=== PATIENT | female | born 1960 | race Caucasian/White ===

== ENCOUNTER 2020-08-21 23:55 | Emergency (ER) | payer OTHER, SELFPAY ==
[2020-08-22 00:10] VITALS: BP 175/95; PULSE 124; RESP 20; TEMP 36.6; O2SAT 94; BMI 27.3
--- NOTE | 2020-08-22 00:11 | W.ED.HEATRA ---
HPI - Head Injury General: Chief complaint: Wound/Laceration Stated complaint: lip lac Time Seen by Provider: 08/22/20 00:09 Source: patient Mode of arrival: ambulatory Limitations: no limitations History of Present Illness: HPI Narrative: Patient was walking her dog and the dog yanked pulling her into a door frame. Patient lacerated the mid upper lip. Patient does have laceration involving the vermilion border. Patient does not recall her last tetanus shot. Patient appears well. Patient appears no acute distress. Incident occurred just prior to arrival. Review of Systems General: Reports: 10 or more systems reviewed and unremarkable except in HPI and below Skin/Breast: Reports: other (Upper lip laceration.) Physical Exam Const: COMMON NORMALS: no acute distress and patient oriented x3 GENERAL APPEARANCE: cooperative HENMT: COMMON NORMALS: normocephalic, TM's normal bilaterally and Normal external nose present HEAD & SCALP: normal to inspection and normocephalic NOSE: Normal external nose present TYMPANIC MEMBRANE: TM's normal bilaterally MOUTH: Normal oral and palatal mucosa present and other (No injury to the teeth, laceration involving the upper lip going through th) THROAT: posterior oropharynx normal Eye: GENERAL EYE: appearance normal, both eyes and all related structures Neck/C-Spine: COMMON NORMALS: full ROM Chest: COMMONS NORMALS: normal inspection of the chest Resp: COMMON NORMALS: normal respiratory effort EFFORT & INSPECTION: Yes able to speak in complete sentences Cardio: COMMON NORMALS: regular rate and regular rhythm RATE: regular rate RHYTHM: regular rhythm GI: COMMON NORMALS: non-tender Extremity: COMMON NORMALS: normal to inspection Neuro: COMMON NORMALS: patient oriented x3 and moves all extremities Psych: COMMON NORMALS: mental status grossly normal and cooperative Skin: COMMON NORMALS: no rashes or lesions noted GENERAL SKIN EXAM: no rashes or lesions noted Procedures Laceration Laceration 1: Site: lip Size (cm): 3 Description: linear and involves vlad border Depth: simple, single layer Local Anesthetic: lidocaine 1% and with epi Amount of anesthesia used (mL): 3 Skin layer closed with: nylon Size (cm): 6-0 Number of sutures: 6 Technique: simple, interrupted and horizontal mattress Course Vital Signs: Vital signs: Vital Signs Temperature 97.9 F 08/22/20 00:10 Pulse Rate 121 H 08/22/20 00:14 Respiratory Rate 18 04/25/21 00:14 Blood Pressure 175/95 08/22/20 00:10 Pulse Oximetry 95 08/22/20 00:14 MDM - Head Injury MDM Narrative: Medical decision making narrative: Patient comes in for injury to the mid upper lip. On exam we note a laceration involving the vermilion border, and center lip extending approximately 1 cm through the frenulum through the internal mucosa. No foreign body was noted. No injury to the teeth was noted. Wound was closed with 5 simple interrupted sutures and 1 horizontal mattress suture. Well approximation of the vermilion border was noted with good movement of the lips. Reviewed post procedure care and instructions with patient encouraging a soft diet and good oral care. Patient reported understanding of care plan and need for follow-up or return. Discharge Plan Discharge Patient Disposition: Home Clinical Impression: Laceration of lip Qualifiers: Encounter type: initial encounter Qualified Code(s): S01.511A - Laceration without foreign body of lip, initial encounter Condition: Stable Prescriptions: New cephalexin 500 mg capsule 500 mg PO Q8H 7 Days Qty: 21 RF: 0 Discharge Orders: Discharge ED (Routine); Ordered 08/22/20 Ordered By: Luis Franklin Referrals: Mario Shelton MD [Primary Care Provider] - Discharge Diet: Usual diet Discharge Activity: Increase activity as tolerated Patient Instructions: Laceration (ED), Opioid Safety Activity Restrictions/Additional Instructions: Keep wound clean and dry as much as possible. Good oral care with fresh water rinses or salt water rinses. Do not use peroxide. Take antibiotics as directed. Sutures need to come out in 5 days. Use acetaminophen or ibuprofen for pain. Follow-up with primary care as needed. Coding Level of Care Code ED Staff Command And Control Officer for Chg Fwd Exam Comprehensive
[2020-08-22 00:14] VITALS: PULSE 121; RESP 18; O2SAT 95
[2020-08-22] MEDS: tetanus-dipt-pertussis 0.5 mL SDV IM (00:18)
[2020-08-22] MEDS: cephALEXin 500 mg Capsule PO (00:21)
[2020-08-22 01:02] VITALS: BP 157/90; PULSE 98; RESP 18; O2SAT 99
== END 2020-08-22 01:03 | disposition home or self-care (01) ==
PROVIDERS: Emergency Provider Nurse Practitioner Family; PCP Family Medicine
DX: S01.511A Laceration without foreign body of lip, initial encounter (principal); W22.09XA Striking against other stationary object, initial encounter; Z23 Encounter for immunization
CPT/HCPCS: 12013; 90471; 90715; 99283

== ENCOUNTER 2024-10-28 08:43 | Outpatient (CLI) | payer BC, SELFPAY ==
--- NOTE | 2024-10-28 08:48 | MM_ITS ---
WS: [id number] BILATERAL 3D TOMOSYNTHESIS DIGITAL SCREENING MAMMOGRAPHY WITH CAD CLINICAL INFORMATION: SCREENING HISTORY: Screening mammogram. No current complaints. COMPARISON: 2014 TECHNIQUE: Bilateral CC and MLO views. FINDINGS: Scattered fibroglandular densities bilaterally. No suspicious focal mass, asymmetry, calcifications, or architectural distortion. No evidence of malignancy. Incidental punctate and lucent centered calcifications. MM/MM scr tomosynthesis [id number] IMPRESSION: DENSITY: There are scattered areas of fibroglandular density. BI-RADS: 2 - Benign. FOLLOW UP: 1 Year Follow-up Recommend return to annual screening mammography.
== END 2024-10-28 08:44 | disposition home or self-care (01) ==
LOC: RAD 08:44
PROVIDERS: PCP Family Medicine; Visit Provider Family Medicine
DX: Z12.31 Encounter for screening mammogram for malignant neoplasm of breast (principal); R92.323 Mammographic fibroglandular density, bilateral breasts; R92.1 Mammographic calcification found on diagnostic imaging of breast
CPT/HCPCS: 77063; 77067